=== PATIENT | male | born 1945 | race Caucasian/White ===

== ENCOUNTER 2018-03-25 13:40 | Emergency (ER) | payer OTHER ==
[~2018-03-25] VITALS: Ht 177.8 cm; Wt 102.5 kg
[2018-03-25 19:38] VITALS: BP 153/95
== END 2018-03-25 15:10 | disposition home or self-care (01) ==
LOC: ER 13:40
DX: S01.81XA Laceration without foreign body of other part of head, initial encounter (principal); I10 Essential (primary) hypertension; Z88.8 Allergy status to other drugs, medicaments and biological substances; W01.0XXA Fall on same level from slipping, tripping and stumbling without subsequent striking against object, initial encounter; Y93.89 Activity, other specified; Y92.89 Other specified places as the place of occurrence of the external cause; Y99.8 Other external cause status